=== PATIENT | male | born 1990 | race Hispanic/Latino ===

== ENCOUNTER 2021-03-30 10:42 | Emergency (ER) | payer SELFPAY ==
[~2021-03-30] VITALS: Ht 165.1 cm; Wt 94.9 kg
[2021-03-30] MEDS ORDERED: IBUPROFEN 600 MG TAB PO STA (11:34)
[2021-03-30] MEDS ORDERED: IBUPROFEN 600 MG TAB ONE (11:52)
[2021-03-30] MEDS ORDERED: TAMIFLU75 MG PO (11:53)
[2021-03-30] MEDS ORDERED: IBUPROFEN600 MG PO (11:54)
[2021-03-30 13:01] VITALS: BP 133/75
== END 2021-03-30 13:10 | disposition home or self-care (01) ==
LOC: FSED 10:53
DX: R50.9 Fever, unspecified (principal); J10.1 Influenza due to other identified influenza virus with other respiratory manifestations; B34.9 Viral infection, unspecified; R94.31 Abnormal electrocardiogram [ECG] [EKG]
CPT/HCPCS: 71046; 93005; 99283